=== PATIENT | male | born 1940 | race Caucasian/White ===

== ENCOUNTER 2021-08-17 00:05 | Inpatient (IN) | payer OTHER ==
[~2021-08-17] VITALS: Ht 177.8 cm; Wt 108.6 kg
[2021-08-17 00:45] LABS: HEMOGLOBIN 14.4 gm/dl (14.0-17.5); RED BLOOD COUNT 4.57 M/UL (4.20-5.50); WHITE BLOOD COUNT 9.3 K/UL (4.5-11.0)
[2021-08-17 05:40] LABS: RED BLOOD COUNT 4.23 M/UL (4.20-5.50); WHITE BLOOD COUNT 7.7 K/UL (4.5-11.0)
[2021-08-17 06:00] LABS: BUN/CREATININE RATIO 29 (0-10)
[2021-08-17] MEDS ORDERED: LISINOPRIL40 MG PO (11:21)
[2021-08-17] MEDS ORDERED: SERTRALINE HCL25 MG PO (11:21)
[2021-08-17] MEDS ORDERED: FLOMAX 0.4 MG0.4 MG PO (11:21)
[2021-08-17] MEDS ORDERED: ATORVASTATIN CA40 MG PO (11:22)
[2021-08-17] MEDS ORDERED: AMLODIPINE BESYL5 MG PO (11:22)
[2021-08-17] MEDS ORDERED: HYDROCHLOROTH12.5 MG PO (11:22)
[2021-08-18 04:40] LABS: BUN/CREATININE RATIO 24 (0-10)
[2021-08-18] MEDS ORDERED: ASPIRIN EC81 MG PO (10:41)
[2021-08-19] MEDS ORDERED: LISINOPRIL5 MG PO (11:10)
[2021-08-19] MEDS ORDERED: METFORMIN HCL750 MG PO (11:10)
[2021-08-19] MEDS ORDERED: ACCU-CHEK GUID1 EAC3 MC (11:10)
[2021-08-19] MEDS ORDERED: ACCU-CHEK FAST1 EACH MC (11:10)
[2021-08-19] MEDS ORDERED: NOVOLOG MI100 UNIT/1 SC (11:10)
[2021-08-19] MEDS ORDERED: PROTONIX 40 MG40 M1 PO (11:10)
== END 2021-08-19 12:33 | disposition home or self-care (01) | DRG 638 ==
LOC: ER1 00:05 → CDU 01:34 → M/S 01:34
PROVIDERS: Internal Medicine Infectious Disease; Physician Assistant; ADMIT Internal Medicine
DX: E11.65 Type 2 diabetes mellitus with hyperglycemia (principal); E87.1 Hypo-osmolality and hyponatremia; K21.9 Gastro-esophageal reflux disease without esophagitis; Z20.822 Contact with and (suspected) exposure to COVID-19; E11.43 Type 2 diabetes mellitus with diabetic autonomic (poly)neuropathy; K31.84 Gastroparesis; I25.10 Atherosclerotic heart disease of native coronary artery without angina pectoris; I10 Essential (primary) hypertension; E27.9 Disorder of adrenal gland, unspecified; N20.0 Calculus of kidney; K76.0 Fatty (change of) liver, not elsewhere classified; E78.5 Hyperlipidemia, unspecified; Z95.5 Presence of coronary angioplasty implant and graft; Z85.46 Personal history of malignant neoplasm of prostate; I25.2 Old myocardial infarction; Z88.2 Allergy status to sulfonamides; Z82.3 Family history of stroke; Z82.0 Family history of epilepsy and other diseases of the nervous system; Z79.4 Long term (current) use of insulin
CPT/HCPCS: 36415; 74170; 80048; 80053; 81001; 82009; 82800; 82962; 83036; 83735; 84100; 85025; 87086; 96361; 96374; 99285; C9113; J1650; Q9967